=== PATIENT | female | born 1945 | race Caucasian/White ===

== ENCOUNTER 2017-12-03 21:44 | Outpatient (CLI) | payer MEDICARE, BC | END 2017-12-03 21:45 | disposition critical access hospital (66) | LOC: EMS 21:44 | PROVIDERS: ATTEND Surgery | DX: R41.82 Altered mental status, unspecified (principal); R53.83 Other fatigue | CPT/HCPCS: A0425; A0427 ==

== ENCOUNTER 2017-12-03 22:02 | Emergency (ER) | payer MEDICARE, BC ==
[2017-12-03 22:20] LABS: BASOPHILS % (AUTO) 0.5 %; EOSINOPHILS # (AUTO) 0.2 10^3/uL (0.0-0.7); EOSINOPHILS % (AUTO) 2.5 %; HGB - HEMOGLOBIN 12.1 g/dL (12.0-16.0); LYMPHOCYTES # (AUTO) 1.7 10^3/uL (1.5-3.5); LYMPHOCYTES % (AUTO) 25.1 %; MEAN CORPUSCULAR HEMOGLOBIN 33.4 pg (27.0-31.0); MEAN CORPUSCULAR VOLUME 98.2 fL (81.0-99.0); MEAN PLATELET VOLUME 7.6 fL (7.9-10.8); MONOCYTES # (AUTO) 0.4 10^3/uL (0.0-1.0); MONOCYTES % (AUTO) 5.3 %; NEUTROPHILS # (AUTO) 4.4 10^3/uL (1.5-6.6); NEUTROPHILS % (AUTO) 66.6 %; PLT - PLATELET COUNT 184 10^3/uL (130-450); RED BLOOD COUNT 3.61 10^6/uL (4.20-5.40); RED CELL DISTRIBUTION WIDTH 12.6 % (12.0-15.0); WHITE BLOOD COUNT 6.6 x10^3/uL (4.8-10.8)
[2017-12-03 22:37] LABS: ALBUMIN 3.4 g/dL (3.2-5.5); ALBUMIN/GLOBULIN RATIO 1.5 (1.0-2.2); ALKALINE PHOSPHATASE 45 IU/L (42-121); ALT ALANINE AMINOTRANSFERASE 27 IU/L (10-60); AST ASPARTATE AMINOTRANSFERASE 26 IU/L (10-42); BUN - BLOOD UREA NITROGEN 31 mg/dL (6-20); CALCIUM 9.2 mg/dL (8.5-10.3); CARBON DIOXIDE - CO2 27 mmol/L (21-32); CHLORIDE 105 mmol/L (101-111); CREATININE 1.3 mg/dL (0.4-1.0); GFR - MDRD 40 (>89); GLUCOSE 80 mg/dL (70-100); LIPASE 30 U/L (22-51); SALICYLATE < 6.0 mg/dL; SODIUM 139 mmol/L (135-145); TOTAL PROTEIN 5.6 g/dL (6.7-8.2)
[2017-12-03 22:40] LABS: ACETAMINOPHEN < 10 ug/mL (10-30)
[2017-12-03 22:56] LABS: BILIRUBIN,URINE NEGATIVE (NEGATIVE); GLUCOSE, URINE (UA) NEGATIVE (NEGATIVE); KETONES,URINE (UA) NEGATIVE (NEGATIVE); LEUKOCYTE ESTERASE, URINE NEGATIVE (NEGATIVE); NITRITE,URINE NEGATIVE (NEGATIVE); OCCULT BLOOD,URINE NEGATIVE (NEGATIVE); PH,URINE 5.5 PH (5.0-7.5); PROTEIN,URINE NEGATIVE (NEGATIVE); UROBILINOGEN,URINE 0.2 (NORMAL) E.U./dL (NORMAL)
[2017-12-03 22:58] LABS: CLARITY,URINE CLEAR (CLEAR)
--- NOTE | 2017-12-03 23:38 | ED Physician Documentation ---
PD HPI MHE - Stated complaint Stated Complaint: OVERDOSE - Chief complaint Chief Complaint: General - History obtained from History obtained from: Patient, EMS, Police - History of Present Illness Primary symptom: Suicide attempt Timing - onset: Today Contributing factors: Family, Sig other Similar symptoms before: Has not had sx before Recently seen: Not recently seen - Additional information Additional information: Patient is a 72 year old female brought in by ems for suicide attempt. According to ems patient is going through a divorce and tonight drank and took an unknown amount of trazadone, alcohol and benzodiazapam. Upon initial evaluation in the emergency department patient is sedated but arousable. Review of Systems Unable to obtain: [facility] PD PAST MEDICAL HISTORY - Past Medical History Past Medical History: Yes Psych: Bipolar disorder Other Past Medical History: alcholism, cochlear implant - Past Surgical History Past Surgical History: Yes General: Cholecystectomy /[employer]: Hysterectomy - Present Medications Home Medications: Ambulatory Orders Medication Instructions Recorded Confirmed Cholecalciferol (Vitamin D3) 1 tab PO DAILY 12/03/17 12/03/17 [Vitamin D3] Estradiol [Estrace] 1 gm 12/03/17 Glucosam/Chondr-MSM#6/Manganes 1 tab PO DAILY 12/03/17 12/03/17 [Glucosamine-Chondroitin Sftgl] Hydroxyzine Pamoate [Vistaril] 25 mg PO DAILY 12/03/17 12/03/17 Ibandronate Sodium 1 tab PO 12/03/17 Lactobacillus Acidophilus 300 mg PO DAILY 12/03/17 12/03/17 [Acidophilus] Levothyroxine Sodium [Levoxyl] 1 tab PO DAILY 12/03/17 12/03/17 Mirabegron [Myrbetriq] 1 tab PO DAILY 12/03/17 12/03/17 Multivitamin [Multiple Vitamins] 1 tab PO DAILY 12/03/17 12/03/17 [place]-3/Dha/Epa/Fish Oil [Fish Oil 1 tab PO DAILY 12/03/17 12/03/17 1,000 mg Softgel] Valacyclovir HCl [Valacyclovir] 1 tab PO DAILY 12/03/17 12/03/17 buPROPion [Wellbutrin Xl] 2 tab PO DAILY 12/03/17 12/03/17 lamoTRIgine [Lamictal] 1 tab PO DAILY 12/03/17 12/03/17 traZODone [Desyrel] 2 tab PO DAILY 12/03/17 12/03/17 - Social History Does the pt smoke?: No Smoking Status: Never smoker PD ED PE NORMAL - Vitals Vital signs reviewed: Yes - HEENT HEENT: Atraumatic - Cardiac Cardiac: RRR - Respiratory Respiratory: No respiratory distress - Abdomen Abdomen: Soft, Non tender - Derm Derm: Normal color - Extremities Extremities: No deformity - Neuro Eye Opening: To Voice Motor: Localizes to Pain Verbal: None GCS Score: 9 PD ED PE EXPANDED - General General: Lethargic (sedated but arousable ) Results - Vitals Vitals: Vital Signs - 24 hr 12/03/17 12/04/17 12/04/17 22:11 00:00 01:00 Temperature Heart Rate 70 70 65 Respiratory 16 18 16 Rate Blood Pressure 112/64 118/54 L 129/74 O2 Saturation 96 100 100 12/04/17 12/04/17 12/04/17 03:00 05:00 06:41 Temperature 36.6 C Heart Rate 49 L 50 L 46 L Respiratory 16 16 14 Rate Blood Pressure 114/52 L 123/58 L 114/59 L O2 Saturation 100 100 100 Oxygen O2 Source Room air - EKG (time done) 2213 Rate: Rate (enter#) (72) Rhythm: NSR [place]: Normal Intervals: Normal [place]. No: Prolonged QT QRS: Normal - Labs Labs: Laboratory Tests 12/03/17 12/03/17 12/03/17 22:16 22:16 22:16 WBC 6.6 RBC 3.61 L Hgb 12.1 Hct 35.4 L MCV 98.2 MCH 33.4 H MCHC 34.0 RDW 12.6 Plt Count 184 MPV 7.6 L Neut # (Auto) 4.4 Lymph # (Auto) 1.7 [place] # (Auto) 0.4 Eos # (Auto) 0.2 Baso # (Auto) 0.0 Absolute Nucleated RBC 0.00 Nucleated RBC % 0.0 Sodium 139 Potassium 4.0 Chloride 105 Carbon Dioxide 27 Anion Gap 7.0 BUN 31 H Creatinine 1.3 H Estimated GFR (MDRD) 40 L Glucose 80 Calcium 9.2 Total Bilirubin 1.0 AST 26 ALT 27 Alkaline Phosphatase 45 Troponin I < 0.04 Total Protein 5.6 L Albumin 3.4 Globulin 2.2 Albumin/Globulin Ratio 1.5 Lipase 30 TSH Urine Color Urine Clarity Urine pH Ur Specific [place] Urine Protein Urine Glucose (UA) Urine Ketones Urine Occult Blood Urine Nitrite Urine Bilirubin Urine Urobilinogen Ur Leukocyte Esterase Ur Microscopic Review Urine Culture Comments Salicylates < 6.0 Urine Opiates Screen Ur Oxycodone Screen Urine Methadone Screen Ur Propoxyphene Screen Acetaminophen < 10 L Ur Barbiturates Screen Ur Tricyclics Screen Ur Phencyclidine Scrn Ur Amphetamine Screen U Methamphetamines Scrn U Benzodiazepines Scrn Urine Cocaine Screen U Cannabinoids Screen Ethyl Alcohol < 5.0 12/03/17 12/03/17 12/03/17 22:16 22:35 22:35 WBC RBC Hgb Hct MCV MCH MCHC RDW Plt Count MPV Neut # (Auto) Lymph # (Auto) [place] # (Auto) Eos # (Auto) Baso # (Auto) Absolute Nucleated RBC Nucleated RBC % Sodium Potassium Chloride Carbon Dioxide Anion Gap BUN Creatinine Estimated GFR (MDRD) Glucose Calcium Total Bilirubin AST ALT Alkaline Phosphatase Troponin I Total Protein Albumin Globulin Albumin/Globulin Ratio Lipase TSH 0.99 Urine Color YELLOW Urine Clarity CLEAR Urine pH 5.5 Ur Specific [place] >=1.030 H Urine Protein NEGATIVE Urine Glucose (UA) NEGATIVE Urine Ketones NEGATIVE Urine Occult Blood NEGATIVE Urine Nitrite NEGATIVE Urine Bilirubin NEGATIVE Urine Urobilinogen 0.2 (NORMAL) Ur Leukocyte Esterase NEGATIVE Ur Microscopic Review NOT INDICATED Urine Culture Comments NOT INDICATED Salicylates Urine Opiates Screen NEGATIVE Ur Oxycodone Screen NEGATIVE Urine Methadone Screen NEGATIVE Ur Propoxyphene Screen NEGATIVE Acetaminophen Ur Barbiturates Screen NEGATIVE Ur Tricyclics Screen NEGATIVE Ur Phencyclidine Scrn NEGATIVE Ur Amphetamine Screen NEGATIVE U Methamphetamines Scrn NEGATIVE U Benzodiazepines Scrn POSITIVE H Urine Cocaine Screen NEGATIVE U Cannabinoids Screen NEGATIVE Ethyl Alcohol PD MEDICAL DECISION MAKING - ED course Complexity details: reviewed old records, reviewed results, re-evaluated patient , considered differential, d/w patient ED course: Patient was seen and examined at bedside. patient was under the influence of trazadone but was arousable. patient was maintaining her airway. poison control was contacted and they recommended 6-8 hr observation. In the morning patient was re-evaluated. Patient was calm and cooperative. patient was medically clear and signed over to Dr. Trinidad pending social work evaluation. - Sepsis Event Vital Signs: Vital Signs - 24 hr 12/03/17 12/04/17 12/04/17 22:11 00:00 01:00 Temperature Heart Rate 70 70 65 Respiratory 16 18 16 Rate Blood Pressure 112/64 118/54 L 129/74 O2 Saturation 96 100 100 12/04/17 12/04/17 12/04/17 03:00 05:00 06:41 Temperature 36.6 C Heart Rate 49 L 50 L 46 L Respiratory 16 16 14 Rate Blood Pressure 114/52 L 123/58 L 114/59 L O2 Saturation 100 100 100 Oxygen O2 Source Room air Departure - Departure Clinical Impression: Depression, Suicide attempt by drug ingestion Condition: Stable
[2017-12-04 06:26] LABS: MUDS CUTOFF CONCENTRATIONS CUTOFF CONC BELOW:
[2017-12-04 06:49] LABS: AMPHETAMINE SCREEN,URINE NEGATIVE (NEGATIVE); BENZODIAZEPINES SCREEN, URINE POSITIVE (NEGATIVE); COCAINE SCREEN URINE NEGATIVE (NEGATIVE); METHAMPHETAMINES SCREEN, URINE NEGATIVE (NEGATIVE); OPIATE SCREEN, URINE NEGATIVE (NEGATIVE)
[2017-12-04 06:50] LABS: METHADONE SCREEN, URINE NEGATIVE (NEGATIVE); OXYCODONE SCREEN, URINE NEGATIVE (NEGATIVE); PROPOXYPHENE SCREEN, URINE NEGATIVE (NEGATIVE); TRICYCLIC ANTIDEPRESSANT,URINE NEGATIVE (NEGATIVE)
--- NOTE | 2017-12-04 07:37 | ED Physician Documentation ---
History of Present Illness - Stated complaint Stated Complaint: OVERDOSE - Chief complaint Chief Complaint: General - Additonal information Additional information: assumed care 7 AM 12/04 72 f per night custodian (and confirmed with pt this AM) she is getting and wants to and took an intentional trazadone OD last night she denies other meds OD she is dissapointed she did not and is still suicidal now she states she fell and hut her R shoulder but denies hitting her head and denies [employer] no fever cough NVD seen and medically cleared by prior shift per night custodian Dr Argueta, case was discussed with DCR who was already in the ER seeing another pt but she felt pt should be seen by SW instead so she has boarded overnight pending SW availability Review of Systems Constitutional: denies: Fever Cardiac: denies: Chest pain / pressure Respiratory: denies: Dyspnea GI: denies: Abdominal Pain, Nausea, Vomiting Skin: reports: Other (bruise right shoulder) Musculoskeletal: denies: Neck pain Neurologic: denies: Headache, Head injury Psychiatric: reports: Depressed, Suicidal Endocrine: denies: Easy bruising / bleeding Immunocompromised: denies: Immunocompromised PD PAST MEDICAL HISTORY - Past Medical History Past Medical History: Yes Psych: Bipolar disorder Other Past Medical History: alcholism, cochlear implant - Past Surgical History Past Surgical History: Yes General: Cholecystectomy /[employer]: Hysterectomy - Present Medications Home Medications: Ambulatory Orders Medication Instructions Recorded Confirmed Cholecalciferol (Vitamin D3) 1 tab PO DAILY 12/03/17 12/03/17 [Vitamin D3] Estradiol [Estrace] 1 gm 12/03/17 Glucosam/Chondr-MSM#6/Manganes 1 tab PO DAILY 12/03/17 12/03/17 [Glucosamine-Chondroitin Sftgl] Hydroxyzine Pamoate [Vistaril] 25 mg PO DAILY 12/03/17 12/03/17 Ibandronate Sodium 1 tab PO 12/03/17 Lactobacillus Acidophilus 300 mg PO DAILY 12/03/17 12/03/17 [Acidophilus] Levothyroxine Sodium [Levoxyl] 1 tab PO DAILY 12/03/17 12/03/17 Mirabegron [Myrbetriq] 1 tab PO DAILY 12/03/17 12/03/17 Multivitamin [Multiple Vitamins] 1 tab PO DAILY 12/03/17 12/03/17 [place]-3/Dha/Epa/Fish Oil [Fish Oil 1 tab PO DAILY 12/03/17 12/03/17 1,000 mg Softgel] Valacyclovir HCl [Valacyclovir] 1 tab PO DAILY 12/03/17 12/03/17 buPROPion [Wellbutrin Xl] 2 tab PO DAILY 12/03/17 12/03/17 lamoTRIgine [Lamictal] 1 tab PO DAILY 12/03/17 12/03/17 traZODone [Desyrel] 2 tab PO DAILY 12/03/17 12/03/17 - Allergies Allergies/Adverse Reactions: Allergies Allergy/AdvReac Type Severity Reaction Status Date / Time No Known Drug Allergies Allergy Verified 12/04/17 07:13 - Social History Does the pt smoke?: No Smoking Status: Never smoker PD ED PE NORMAL - Vitals Vital signs reviewed: Yes - General General: Other (disheveled frustrated) - HEENT HEENT: Atraumatic, PERRL - Neck Neck: No bony TTP - Cardiac Cardiac: RRR - Respiratory Respiratory: No respiratory distress, Clear bilaterally - Abdomen Abdomen: Non tender - Derm Derm: Other (small bruise right shoulder but full ROM s pain) - Extremities Extremities: No deformity - Neuro Neuro: Alert and oriented X 3 Eye Opening: Spontaneous Motor: Obeys Commands Verbal: Oriented GCS Score: 15 - Psych Psych: Other (depressed and still actively suicidal) Results - Vitals Vitals: Vital Signs - 24 hr 12/03/17 12/04/17 12/04/17 22:11 00:00 01:00 Temperature Heart Rate 70 70 65 Respiratory 16 18 16 Rate Blood Pressure 112/64 118/54 L 129/74 O2 Saturation 96 100 100 12/04/17 12/04/17 12/04/17 03:00 05:00 06:41 Temperature 36.6 C Heart Rate 49 L 50 L 46 L Respiratory 16 16 14 Rate Blood Pressure 114/52 L 123/58 L 114/59 L O2 Saturation 100 100 100 12/04/17 12/04/17 07:38 12:39 Temperature 36.5 C Heart Rate 58 L 59 L Respiratory 15 13 Rate Blood Pressure 108/56 L 107/65 O2 Saturation 100 99 Oxygen O2 Source Room air - Tele (time rhythm occurred) 0720 Telemetry / rhythm strip: Other (NSR nl QRS and QT) - Labs Labs: Laboratory Tests 12/03/17 12/03/17 12/03/17 22:16 22:16 22:16 WBC 6.6 RBC 3.61 L Hgb 12.1 Hct 35.4 L MCV 98.2 MCH 33.4 H MCHC 34.0 RDW 12.6 Plt Count 184 MPV 7.6 L Neut # (Auto) 4.4 Lymph # (Auto) 1.7 [place] # (Auto) 0.4 Eos # (Auto) 0.2 Baso # (Auto) 0.0 Absolute Nucleated RBC 0.00 Nucleated RBC % 0.0 Sodium 139 Potassium 4.0 Chloride 105 Carbon Dioxide 27 Anion Gap 7.0 BUN 31 H Creatinine 1.3 H Estimated GFR (MDRD) 40 L Glucose 80 Calcium 9.2 Total Bilirubin 1.0 AST 26 ALT 27 Alkaline Phosphatase 45 Troponin I < 0.04 Total Protein 5.6 L Albumin 3.4 Globulin 2.2 Albumin/Globulin Ratio 1.5 Lipase 30 TSH Urine Color Urine Clarity Urine pH Ur Specific [place] Urine Protein Urine Glucose (UA) Urine Ketones Urine Occult Blood Urine Nitrite Urine Bilirubin Urine Urobilinogen Ur Leukocyte Esterase Ur Microscopic Review Urine Culture Comments Salicylates < 6.0 Urine Opiates Screen Ur Oxycodone Screen Urine Methadone Screen Ur Propoxyphene Screen Acetaminophen < 10 L Ur Barbiturates Screen Ur Tricyclics Screen Ur Phencyclidine Scrn Ur Amphetamine Screen U Methamphetamines Scrn U Benzodiazepines Scrn Urine Cocaine Screen U Cannabinoids Screen Ethyl Alcohol < 5.0 12/03/17 12/03/17 12/03/17 22:16 22:35 22:35 WBC RBC Hgb Hct MCV MCH MCHC RDW Plt Count MPV Neut # (Auto) Lymph # (Auto) [place] # (Auto) Eos # (Auto) Baso # (Auto) Absolute Nucleated RBC Nucleated RBC % Sodium Potassium Chloride Carbon Dioxide Anion Gap BUN Creatinine Estimated GFR (MDRD) Glucose Calcium Total Bilirubin AST ALT Alkaline Phosphatase Troponin I Total Protein Albumin Globulin Albumin/Globulin Ratio Lipase TSH 0.99 Urine Color YELLOW Urine Clarity CLEAR Urine pH 5.5 Ur Specific [place] >=1.030 H Urine Protein NEGATIVE Urine Glucose (UA) NEGATIVE Urine Ketones NEGATIVE Urine Occult Blood NEGATIVE Urine Nitrite NEGATIVE Urine Bilirubin NEGATIVE Urine Urobilinogen 0.2 (NORMAL) Ur Leukocyte Esterase NEGATIVE Ur Microscopic Review NOT INDICATED Urine Culture Comments NOT INDICATED Salicylates Urine Opiates Screen NEGATIVE Ur Oxycodone Screen NEGATIVE Urine Methadone Screen NEGATIVE Ur Propoxyphene Screen NEGATIVE Acetaminophen Ur Barbiturates Screen NEGATIVE Ur Tricyclics Screen NEGATIVE Ur Phencyclidine Scrn NEGATIVE Ur Amphetamine Screen NEGATIVE U Methamphetamines Scrn NEGATIVE U Benzodiazepines Scrn POSITIVE H Urine Cocaine Screen NEGATIVE U Cannabinoids Screen NEGATIVE Ethyl Alcohol 12/04/17 12/04/17 10:32 10:40 WBC RBC Hgb Hct MCV MCH MCHC RDW Plt Count MPV Neut # (Auto) Lymph # (Auto) [place] # (Auto) Eos # (Auto) Baso # (Auto) Absolute Nucleated RBC Nucleated RBC % Sodium Potassium Chloride Carbon Dioxide Anion Gap BUN Creatinine Estimated GFR (MDRD) Glucose Calcium Total Bilirubin AST ALT Alkaline Phosphatase Troponin I Total Protein Albumin Globulin Albumin/Globulin Ratio Lipase TSH Urine Color Urine Clarity Urine pH Ur Specific [place] Urine Protein Urine Glucose (UA) Urine Ketones Urine Occult Blood Urine Nitrite Urine Bilirubin Urine Urobilinogen Ur Leukocyte Esterase Ur Microscopic Review Urine Culture Comments Salicylates < 6.0 Urine Opiates Screen NEGATIVE Ur Oxycodone Screen NEGATIVE Urine Methadone Screen NEGATIVE Ur Propoxyphene Screen NEGATIVE Acetaminophen < 10 L Ur Barbiturates Screen NEGATIVE Ur Tricyclics Screen NEGATIVE Ur Phencyclidine Scrn NEGATIVE Ur Amphetamine Screen NEGATIVE U Methamphetamines Scrn NEGATIVE U Benzodiazepines Scrn POSITIVE H Urine Cocaine Screen NEGATIVE U Cannabinoids Screen NEGATIVE Ethyl Alcohol PD MEDICAL DECISION MAKING - ED course ED course: assumed care 7 AM 12/04 72 f per night custodian (and confirmed with pt this AM) she is getting and wants to and took an intentional trazadone OD last night she denies other meds OD she is dissapointed she did not and is still suicidal now she states she fell and hut her R shoulder but denies hitting her head and denies [employer] no fever cough NVD seen and medically cleared by prior shift per night custodian Dr Argueta, case was discussed with DCR who was already in the ER seeing another pt but she felt pt should be seen by SW instead so she has boarded overnight pending SW availability seen by SW who agrees pt is not safe for dc home and will try to place pt per SW paperwork faxed to [facility] and that facility requests rpt tox screen prior to consideration of accepting pt - so that was ordered and unchanged and pt was accepted - COBRAs completed - Sepsis Event Vital Signs: Vital Signs - 24 hr 12/03/17 12/04/17 12/04/17 22:11 00:00 01:00 Temperature Heart Rate 70 70 65 Respiratory 16 18 16 Rate Blood Pressure 112/64 118/54 L 129/74 O2 Saturation 96 100 100 12/04/17 12/04/17 12/04/17 03:00 05:00 06:41 Temperature 36.6 C Heart Rate 49 L 50 L 46 L Respiratory 16 16 14 Rate Blood Pressure 114/52 L 123/58 L 114/59 L O2 Saturation 100 100 100 12/04/17 12/04/17 07:38 12:39 Temperature 36.5 C Heart Rate 58 L 59 L Respiratory 15 13 Rate Blood Pressure 108/56 L 107/65 O2 Saturation 100 99 Oxygen O2 Source Room air Departure - Departure Disposition: 65 Psych Hosp/Unit DC/Xfer Clinical Impression: Depression, Suicide attempt by drug ingestion Condition: Stable Discharge Date/Time: 12/04/17 14:59
[2017-12-04 10:48] LABS: SALICYLATE < 6.0 mg/dL
[2017-12-04 10:51] LABS: ACETAMINOPHEN < 10 ug/mL (10-30)
[2017-12-04 10:52] LABS: MUDS CUTOFF CONCENTRATIONS CUTOFF CONC BELOW:
[2017-12-04 11:06] LABS: AMPHETAMINE SCREEN,URINE NEGATIVE (NEGATIVE); BENZODIAZEPINES SCREEN, URINE POSITIVE (NEGATIVE); COCAINE SCREEN URINE NEGATIVE (NEGATIVE); METHAMPHETAMINES SCREEN, URINE NEGATIVE (NEGATIVE); OPIATE SCREEN, URINE NEGATIVE (NEGATIVE)
[2017-12-04 11:07] LABS: METHADONE SCREEN, URINE NEGATIVE (NEGATIVE); OXYCODONE SCREEN, URINE NEGATIVE (NEGATIVE); PROPOXYPHENE SCREEN, URINE NEGATIVE (NEGATIVE); TRICYCLIC ANTIDEPRESSANT,URINE NEGATIVE (NEGATIVE)
[2017-12-04 12:40] VITALS: BP 107/65
== END 2017-12-04 14:59 ==
LOC: EDUNIT# → ED 22:02
DX: F32.9 Major depressive disorder, single episode, unspecified (principal); T43.212A Poisoning by selective serotonin and norepinephrine reuptake inhibitors, intentional self-harm, initial encounter; I45.81 Long QT syndrome
CPT/HCPCS: 36415; 80053; 80306; 80307; 80320; 80329; 81001; 81003; 83690; 84443; 84484; 85025; 87086; 93005; 99283; 99284

== ENCOUNTER 2018-11-20 17:46 | Outpatient (CLI) | payer MEDICARE, BC | END 2018-11-20 17:47 | disposition short-term general hospital (02) | LOC: EMS 17:46 | PROVIDERS: ATTEND Surgery | DX: R53.1 Weakness (principal); R42 Dizziness and giddiness; R20.2 Paresthesia of skin | CPT/HCPCS: A0425; A0429 ==

== ENCOUNTER 2020-11-05 08:00 | Outpatient (CLI) | payer MEDICARE, BC | END 2020-11-05 23:59 | disposition home or self-care (01) | LOC: LAB.N 08:00 | PROVIDERS: ATTEND Physician Assistant Medical | DX: N39.0 Urinary tract infection, site not specified (principal) | CPT/HCPCS: 87086 ==

== ENCOUNTER 2020-11-15 10:47 | Emergency (ER) | payer MEDICARE, BC ==
[2020-11-15 11:01] VITALS: BP 112/66
--- NOTE | 2020-11-15 12:35 | ED Physician Documentation ---
History of Present Illness - Stated complaint Stated Complaint: FEMALE - Chief complaint Chief Complaint: General - History obtained from History obtained from: Patient - History of Present Illness Timing: Today Pain level max: 0 Pain level now: 0 - Additonal information Additional information: Patient is a 75-year-old female who presents to the emergency department requesting a change in her [place] leg bag. She states her current bag is leaking. No other complaints. Review of Systems Constitutional: denies: Fever GI: denies: Abdominal Pain, Vomiting, Diarrhea Neurologic: denies: Headache PD PAST MEDICAL HISTORY - Past Medical History Past Medical History: Yes : Other (urinary retention) Psych: Bipolar disorder - Past Surgical History Past Surgical History: Yes General: Cholecystectomy /[employer]: Hysterectomy Other past surgical history: cochlear implant - Present Medications Home Medications: Ambulatory Orders Medication Instructions Recorded Confirmed Cholecalciferol (Vitamin D3) 1 tab PO DAILY 12/03/17 12/03/17 [Vitamin D3] Glucosam/Chondr-Msm6/[place] 1 tab PO DAILY 12/03/17 12/03/17 [Glucosamine-Chondroitin Sftgl] Ibandronate Sodium 1 tab PO 12/03/17 Lactobacillus Acidophilus 300 mg PO DAILY 12/03/17 12/03/17 [Acidophilus] Levothyroxine Sodium [Levoxyl] 1 tab PO DAILY 12/03/17 12/03/17 Mirabegron [Myrbetriq] 1 tab PO DAILY 12/03/17 12/03/17 Multivitamin [Multiple Vitamins] 1 tab PO DAILY 12/03/17 12/03/17 [place]-3/Dha/Epa/Fish Oil [Fish Oil 1 tab PO DAILY 12/03/17 12/03/17 1,000 mg Softgel] Valacyclovir HCl [Valacyclovir] 1 tab PO DAILY 12/03/17 12/03/17 buPROPion [Wellbutrin Xl] 2 tab PO DAILY 12/03/17 12/03/17 estradioL [Estrace] 1 gm 12/03/17 hydrOXYzine pamoate [Vistaril] 25 mg PO DAILY 12/03/17 12/03/17 lamoTRIgine [Lamictal] 1 tab PO DAILY 12/03/17 12/03/17 traZODone [Desyrel] 2 tab PO DAILY 12/03/17 12/03/17 - Allergies Allergies/Adverse Reactions: Allergies Allergy/AdvReac Type Severity Reaction Status Date / Time No Known Drug Allergies Allergy Verified 11/15/20 11:01 - Social History Does the pt smoke?: No Smoking Status: Never smoker PD ED PE NORMAL - Vitals Vital signs reviewed: Yes - General General: Alert and oriented X 3, No acute distress - HEENT HEENT: Moist mucous membranes - Abdomen Abdomen: Soft, Non tender, Non distended - Derm Derm: Warm and dry - Extremities Extremities: No edema - Neuro Neuro: Alert and oriented X 3 Results - Vitals Vitals: Vital Signs - 24 hr 11/15/20 10:55 Temperature 36.6 C Heart Rate 76 Respiratory 16 Rate Blood Pressure 112/66 O2 Saturation 98 Oxygen O2 Source Room air PD MEDICAL DECISION MAKING - ED course Complexity details: considered differential, d/w patient ED course: [place] catheter in place. There is no leaking of the catheter itself. The leak is from the bottom of the leg bag. This was changed. Patient will follow up with her urologist for further care. This document was made in part using voice recognition software. While efforts are made to proofread this document, sound alike and grammatical errors may occur. Departure - Departure Disposition: 01 Home, Self Care Clinical Impression: [place] catheter in place Condition: Good Instructions: ED Catheter Care [place] Follow-Up: BOBBI CRAMER MD [Primary Care Provider] - As Needed Comments: Your leg bag was changed today. Please follow-up with your doctor for further care. Return if you worsen
== END 2020-11-15 13:04 | disposition home or self-care (01) ==
LOC: ED 10:47
DX: Z46.6 Encounter for fitting and adjustment of urinary device (principal)
CPT/HCPCS: 99281

== ENCOUNTER 2021-05-03 06:25 | Outpatient (CLI) | payer MEDICARE, BC | END 2021-05-03 06:26 | disposition short-term general hospital (02) | LOC: EMS 06:25 | DX: Z04.3 Encounter for examination and observation following other accident (principal); M25.532 Pain in left wrist; M79.632 Pain in left forearm | CPT/HCPCS: A0425; A0427 ==

== ENCOUNTER 2021-10-05 16:35 | Outpatient (CLI) | payer MEDICARE, OTHER ==
--- NOTE | 2021-10-06 17:46 | XRAY Report ---
PROCEDURE: Lumbar Spine 2 View INDICATIONS: LOW BACK PAIN TECHNIQUE: 2 views of the lumbar spine were acquired. COMPARISON: None. FINDINGS: Bones: 5 [id number] vertebrae are present. There is normal bony alignment. Mild compression fr acture at the T12 level. Multilevel grade 1 retrolisthesis. Grade 1 spondylolisthesis L5-S1. Multilev el disc height loss with endplate sclerosis and spurring, severe at the L2-L3, L3-L4 and L4-L5 levels . Moderate facet joint arthropathy L5-S1. No suspicious bony lesions. Soft tissues: Overlying bowel gas pattern is normal. No suspicious soft tissue calcifications. IMPRESSION: 1. Mild T12 compression fracture of indeterminate age. If acute fracture is suspected, MRI could be p erformed for further assessment. 2. Multilevel spondylosis. Reviewed by: SOBEIDA Boyd on 10/06/2021 5:45 PM PDT Approved by: Simon Galicia MD on 10/06/2021 5:45 PM PDT Station ID: [id number]
== END 2021-10-05 16:36 | disposition home or self-care (01) ==
LOC: DI 16:35
PROVIDERS: ATTEND Student in an Organized Health Care Education/Training Program
DX: M48.54XA Collapsed vertebra, not elsewhere classified, thoracic region, initial encounter for fracture (principal); M47.814 Spondylosis without myelopathy or radiculopathy, thoracic region

== ENCOUNTER 2022-03-31 17:39 | Outpatient (CLI) | payer MEDICARE, OTHER | END 2022-03-31 17:40 | disposition critical access hospital (66) | LOC: EMS 17:39 | DX: R11.2 Nausea with vomiting, unspecified (principal); R19.7 Diarrhea, unspecified; R10.31 Right lower quadrant pain; R10.32 Left lower quadrant pain; R50.9 Fever, unspecified | CPT/HCPCS: A0425; A0427 ==

== ENCOUNTER 2022-03-31 18:02 | Emergency (ER) | payer MEDICARE, OTHER ==
[2022-03-31 18:34] LABS: BASOPHILS % (AUTO) 0.2 %; HCT - HEMATOCRIT 30.1 % (37.0-47.0); HGB - HEMOGLOBIN 10.1 g/dL (12.0-16.0); LYMPHOCYTES # (AUTO) 0.3 10^3/uL (1.5-3.5); LYMPHOCYTES % (AUTO) 3.3 %; MEAN CORPUSCULAR HEMOGLOBIN 32.6 pg (27.0-31.0); MEAN CORPUSCULAR HGB CONC 33.6 g/dL (32.0-36.0); MEAN CORPUSCULAR VOLUME 97.1 fL (81.0-99.0); MEAN PLATELET VOLUME 9.7 fL (7.9-10.8); MONOCYTES # (AUTO) 0.8 10^3/uL (0.0-1.0); MONOCYTES % (AUTO) 7.9 %; NEUTROPHILS # (AUTO) 8.5 10^3/uL (1.5-6.6); NEUTROPHILS % (AUTO) 88.2 %; PLT - PLATELET COUNT 183 10^3/uL (130-450); RED CELL DISTRIBUTION WIDTH 12.2 % (12.0-15.0); WHITE BLOOD COUNT 9.6 x10^3/uL (4.8-10.8)
--- NOTE | 2022-03-31 18:38 | ED Physician Documentation ---
History of Present Illness - Stated complaint Stated Complaint: N/V/D - Chief complaint Chief Complaint: Abd Pain - Additonal information Additional information: 76-year-old female presents emergency department concerned that she could have dysentery. She reports that she traveled in [place] for 1 month and returned home 2 days ago. She states that she has been having watery diarrhea for the last 3 weeks. She was taking antimalarial pills which I believed to be quinine but am unsure. She states she is supposed to take those for 3 more days. She endorses fevers but no abdominal pain or body aches. No cough. No dysuria. She denies that her output is bloody. She states that she is having on average of 3-5 large watery movements a day Review of Systems Constitutional: reports: Fever Cardiac: reports: Reviewed and negative Respiratory: reports: Reviewed and negative GI: reports: Diarrhea. 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 - Present Medications Home Medications: Ambulatory Orders Medication Instructions Recorded Confirmed Cholecalciferol (Vitamin D3) 1 tab PO DAILY 12/03/17 12/03/17 [Vitamin D3] Glucosam/Chondr-Msm6/Manganese 1 tab PO DAILY 12/03/17 12/03/17 [Glucosamine-Chondroitin Sftgl] Ibandronate Sodium 1 tab PO 12/03/17 Lactobacillus Acidophilus 300 mg PO DAILY 12/03/17 12/03/17 [Acidophilus] Levothyroxine Sodium [Levoxyl] 1 tab PO DAILY 12/03/17 12/03/17 Mirabegron [Myrbetriq] 1 tab PO DAILY 12/03/17 12/03/17 Multivitamin [Multiple Vitamins] 1 tab PO DAILY 12/03/17 12/03/17 [place]-3/Dha/Epa/Fish Oil [Fish Oil 1 tab PO DAILY 12/03/17 12/03/17 1,000 mg Softgel] Valacyclovir HCl [Valacyclovir] 1 tab PO DAILY 12/03/17 12/03/17 buPROPion [Wellbutrin Xl] 2 tab PO DAILY 12/03/17 12/03/17 estradioL [Estrace] 1 gm 12/03/17 hydrOXYzine pamoate [Vistaril] 25 mg PO DAILY 12/03/17 12/03/17 lamoTRIgine [Lamictal] 1 tab PO DAILY 12/03/17 12/03/17 traZODone [Desyrel] 2 tab PO DAILY 12/03/17 12/03/17 Amox/Clav 875/125 [Augmentin] 1 each PO Q12H #20 tablet 03/31/22 Azithromycin [Zithromax] 0 mg PO DAILY #6 tablet 03/31/22 - Allergies Allergies/Adverse Reactions: Allergies Allergy/AdvReac Type Severity Reaction Status Date / Time No Known Drug Allergies Allergy Verified 11/15/20 11:01 - Social History Does the pt smoke?: No Smoking Status: Never smoker PD ED PE NORMAL - General General: Alert and oriented X 3, No acute distress, Well developed/nourished - HEENT HEENT: Atraumatic, Moist mucous membranes - Neck Neck: Supple, no meningeal sign, No adenopathy - Cardiac Cardiac: RRR, No murmur - Respiratory Respiratory: No respiratory distress, Clear bilaterally - Abdomen Abdomen: Normal bowel sounds, Soft, Non tender - Back Back: No CVA TTP, No spinal TTP - Derm Derm: Normal color, Warm and dry, No rash - Extremities Extremities: No deformity, No tenderness to palpate - Neuro Neuro: Alert and oriented X 3, 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 Eye Opening: Spontaneous Motor: Obeys Commands Verbal: Oriented GCS Score: 15 Results - Vitals Vitals: Vital Signs - 24 hr 03/31/22 03/31/22 03/31/22 18:15 18:30 19:25 Temperature 39.4 C H 100.9 C H Heart Rate 78 82 69 Respiratory 20 Rate Blood Pressure 104/63 104/63 O2 Saturation 97 98 99 03/31/22 03/31/22 19:32 20:44 Temperature 38.3 C H Heart Rate 90 Respiratory 16 Rate Blood Pressure 98/54 L 100/47 L O2 Saturation 100 Oxygen O2 Source Room air - Labs Labs: Laboratory Tests 03/31/22 03/31/22 03/31/22 18:27 18:27 18:27 WBC 9.6 RBC 3.10 L Hgb 10.1 L Hct 30.1 L MCV 97.1 MCH 32.6 H MCHC 33.6 RDW 12.2 Plt Count 183 MPV 9.7 Neut # (Auto) 8.5 H Lymph # (Auto) 0.3 L [place] # (Auto) 0.8 Eos # (Auto) 0.0 Baso # (Auto) 0.0 Absolute Nucleated RBC 0.00 Nucleated RBC % 0.0 Sodium 129 L Potassium 3.7 Chloride 99 L Carbon Dioxide 23 Anion Gap 7.0 BUN 29 H Creatinine 1.7 H Estimated GFR (MDRD) 29 L Glucose 222 H Lactic Acid 1.5 Calcium 8.5 Total Bilirubin 0.7 AST 104 H ALT 43 Alkaline Phosphatase 47 Total Protein 6.3 L Albumin 3.4 Globulin 2.9 Albumin/Globulin Ratio 1.2 Urine Color Urine Clarity Urine pH Ur Specific [place] Urine Protein Urine Glucose (UA) Urine Ketones Urine Occult Blood Urine Nitrite Urine Bilirubin Urine Urobilinogen Ur Leukocyte Esterase Urine RBC Urine WBC Ur Squamous Epith Cells Urine Bacteria Urine Casts Urine Culture Comments Nasal Adenovirus (PCR) Nasal B. parapertussis DNA (PCR) Nasal Coronavir 229E PCR Nasal Coronavir HKU1 PCR Nasal Coronavir NL63 PCR Nasal Coronavir OC43 PCR Nasal Enterovir/Rhinovir PCR Nasal Influenza B PCR Nasal Influenza A PCR Nasal Parainfluen 1 PCR Nasal Parainfluen 2 PCR Nasal Parainfluen 3 PCR Nasal Parainfluen 4 PCR Nasal RSV (PCR) Nasal B.pertussis DNA PCR Nasal C.pneumoniae (PCR) Yon Human Metapneumo PCR Nasal M.pneumoniae (PCR) Nasal SARS-CoV-2 (PCR) 03/31/22 03/31/22 03/31/22 18:27 19:22 21:18 WBC RBC Hgb Hct MCV MCH MCHC RDW Plt Count MPV Neut # (Auto) Lymph # (Auto) [place] # (Auto) Eos # (Auto) Baso # (Auto) Absolute Nucleated RBC Nucleated RBC % Sodium 131 L Potassium 3.9 Chloride 102 Carbon Dioxide 22 Anion Gap 7.0 BUN 26 H Creatinine 1.5 H Estimated GFR (MDRD) 34 L Glucose 200 H Lactic Acid Calcium 7.6 L Total Bilirubin AST ALT Alkaline Phosphatase Total Protein Albumin Globulin Albumin/Globulin Ratio Urine Color YELLOW Urine Clarity HAZY Urine pH 6.0 Ur Specific [place] 1.020 Urine Protein 30 H Urine Glucose (UA) NEGATIVE Urine Ketones TRACE Urine Occult Blood LARGE H Urine Nitrite NEGATIVE Urine Bilirubin NEGATIVE Urine Urobilinogen 0.2 (NORMAL) Ur Leukocyte Esterase NEGATIVE Urine RBC 6-10 H Urine WBC 0-3 Ur Squamous Epith Cells MOD Squamous H Urine Bacteria Few Urine Casts 0-2 Granular Casts Urine Culture Comments NOT INDICATED Nasal Adenovirus (PCR) NOT DETECTED Nasal B. parapertussis DNA (PCR) NOT DETECTED Nasal Coronavir 229E PCR NOT DETECTED Nasal Coronavir HKU1 PCR NOT DETECTED Nasal Coronavir NL63 PCR NOT DETECTED Nasal Coronavir OC43 PCR NOT DETECTED Nasal Enterovir/Rhinovir PCR NOT DETECTED Nasal Influenza B PCR NOT DETECTED Nasal Influenza A PCR NOT DETECTED Nasal Parainfluen 1 PCR NOT DETECTED Nasal Parainfluen 2 PCR NOT DETECTED Nasal Parainfluen 3 PCR NOT DETECTED Nasal Parainfluen 4 PCR NOT DETECTED Nasal RSV (PCR) NOT DETECTED Nasal B.pertussis DNA PCR NOT DETECTED Nasal C.pneumoniae (PCR) NOT DETECTED Yon Human Metapneumo PCR NOT DETECTED Nasal M.pneumoniae (PCR) NOT DETECTED Nasal SARS-CoV-2 (PCR) NOT DETECTED - Rads (name of study) CT abd Radiology: Final report received (Focal dense pneumonia right lower lobe. Large fecal lobe. Solid fecal contents. Bilateral kidney stones. No hydronephrosis) PD Medical Decision Making - ED course Complexity details: reviewed results, re-evaluated patient, considered differential, d/w patient ED course: 76-year-old female INITIALLY presents emergency department for evaluation of 3 weeks diarrhea that began while she was in [place] for 1 month. She was taking Malarone as an antimalarial agent. However about 2 hours after she was initially in the emergency department, I reevaluated her and she told me that she was not having diarrhea in fact she been constipated for 3 days. She had very little to eat or drink. She was conf used about when she had the diarrhea and states she only had 3 days of it in [place] She presents here with a mild fever of 101 Celsius. Serum labs show no significant leukocytosis. Her electrolytes do show some kidney injury with an elevated BUN and creatinine. I suspect that this is secondary to dehydration. She was given 2 liter of fluids here in the emergency department. Blood cultures are pending. A CT of her abdomen done without contrast given the kidney injury does show solid stool in the colon nothing to suggest a bowel obstruction or bowel wall thickening/colitis. However she does have a dense right lower lobe pneumonia. She denies any cough. Patient was able to produce 1 small hard nugget of stool in the emergency department. We would not be able to test for C. difficile on this. I do have ova and parasite pending. I have ordered outpatient miscellaneous testing for blood smear to check for malaria as well as PCR testing for dengue fever, Though with the lack of watery stools this is unlikely. Unfortunately these results will not be available overnight. At this time the patient has shown improved renal function after receiving fluid in the emergency department. However about 2144 she was noted to have soft blood pressures in the 90's/40's. She is not hypoxic and would not meet criteria for admission for treatment of the pneumonia. Prescription for azithromycin and Augmentin has been sent to the [facility] in [place]. This she will be given saline at 150 an hour overnight. We will recheck her CBC and BMP in the morning. If improved she is likely stable for discharge home. Blood cultures are pending though I suspect the source of the fever is from the dense pneumonia seen in the right lower lobe of the lung on CT of the abdomen. Patient will be signed out to my nighttime colleague to follow-up on any overnight events and hopeful disposition in am home. Departure - Departure Clinical Impression: Dehydration Pneumonia Qualifiers: Pneumonia type: due to unspecified organism Laterality: right Lung location: lower lobe of lung Qualified Code(s): J18.9 - Pneumonia, unspecified organism Condition: Stable Record reviewed to determine appropriate education?: Yes Instructions: Pneumonia Dc, ED Dehydration Prevent Ch Follow-Up: Óscar Belcher MD [Primary Care Provider] - Prescriptions: Amox/Clav 875/125 [Augmentin] 1 each PO Q12H #20 tablet Azithromycin [Zithromax] 0 mg PO DAILY #6 tablet Comments: Erlene you are seen today in the emergency department because you have been feeling weak and fatigued. You recently returned from [place] and stated that you have had constipation for a few days. The CT of your abdomen shows a right lower lobe pneumonia. Your oxygen levels here are normal and you do not have a cough. I suspect this is a walking pneumonia associated with recent travel. Your initial doses of antibiotics were given tonight in the emergency department and a prescription for them has been sent to [facility] in [place]. It is important that this get filled tomorrow and you begin taking as directed. You were dehydrated here in the emergency department and you had some altered kidney function. We did give you 2 L of IV fluid and on reevaluation your kidney function has started to improve. It is very important that you stay well-hydrated so that you are making clear yellow urine. Its important that you follow closely with your primary care doctor this week to ensure that your symptoms are getting better. Because of your recent travel to [place] we do have malaria and dengue fever testing pending but we will not have these results for a few days. If you find that your symptoms or not improving its important that you return to the ER for a second evaluation. Return sooner for worsening fevers cough, chest pain or shortness of air. Your primary doctor should obtain a repeat chest x-ray in 4 to 6 weeks to ensure that the pneumonia has fully resolved
[2022-03-31] MEDS ORDERED: iohexoL-300 100 ML VIAL ONE (18:41)
[2022-03-31 18:49] LABS: ALBUMIN 3.4 g/dL (3.2-5.5); ALBUMIN/GLOBULIN RATIO 1.2 (1.0-2.2); BILIRUBIN,TOTAL 0.7 mg/dL (0.2-1.0); CALCIUM 8.5 mg/dL (8.5-10.3); CREATININE 1.7 mg/dL (0.4-1.0); POTASSIUM 3.7 mmol/L (3.5-5.0); TOTAL PROTEIN 6.3 g/dL (6.7-8.2)
[2022-03-31] MEDS ORDERED: SODIUM CHLORIDE 0.9% 1,000 ML IV STA ×2 (18:57)
--- NOTE | 2022-03-31 18:57 | XRAY Report ---
PROCEDURE: Chest 1 View X-Ray INDICATIONS: chest pain TECHNIQUE: One view of the chest was acquired. COMPARISON: None. FINDINGS: Surgical changes and devices: None. Lungs and pleura: No pleural effusions or pneumothorax. Subtle pneumonia, right lung base. Mediastinum: Mediastinal contours appear normal. Heart size is normal. Bones and chest wall: No suspicious bony lesions. Overlying soft tissues appear unremarkable. IMPRESSION: Subtle pneumonia, right lung base. Progress films are recommended until clear. Reviewed by: Davidson Bender MD on 03/31/2022 6:55 PM PST Approved by: Davidson Bender MD on 03/31/2022 6:55 PM PST Station ID: [id number]
--- NOTE | 2022-03-31 19:26 | CT Report ---
PROCEDURE: ABDOMEN/PELVIS WO INDICATIONS: TRAVEL TO SIMONE, 3 WK SO DIARRHEA TECHNIQUE: Noncontrast 5 mm thick sections acquired from the diaphragms to the symphysis. 5 mm coronal and sagi ttal reformats were then performed. For radiation dose reduction, the following was used: automated exposure control, adjustment of mA and/or kV according to patient size. COMPARISON: None. FINDINGS: Image quality: Excellent. ABDOMEN: Lung bases: Focal dense pneumonia, basilar portion of right lower lobe. Heart size is normal. Mild p ericardial effusion. Solid organs: Liver and spleen are normal in size. Gallbladder is surgically absent. Pancreas is n ormal in contours. No adrenal nodules. Multiple bilateral renal calcifications. No hydronephrosis. Peritoneum and bowel: Unenhanced bowel loops demonstrate normal wall thickness and caliber. Large fe brennan load. Solid stool contents in the colon. No free fluid or air. Nodes and vessels: No retroperitoneal or mesenteric adenopathy by size criteria. Aorta and inferior vena cava are normal in caliber. Miscellaneous: No ventral hernias. PELVIS: Genitourinary: Bladder wall thickness is normal. Miscellaneous: No inguinal hernias or adenopathy. Bones: No suspicious bony lesions. Remote percutaneous cement fixation of a T12 compression fracture . No acute compression fractures. Lumbar degenerative change. No lytic or blastic bony lesions. IMPRESSION: 1. Focal dense pneumonia, right lower lobe. 2. Large fecal load. Solid fecal contents. 3. Bilateral nephrolithiasis. No hydronephrosis. Progress films are recommended until clear. Reviewed by: Davidson Bender MD on 03/31/2022 7:24 PM PST Approved by: Davidson Bender MD on 03/31/2022 7:24 PM PST Station ID: [id number]
[2022-03-31 19:32] LABS: B. PARAPERTUSSIS- RESP PCR PAN NOT DETECTED; B. PERTUSSIS- RESP PCR PANEL NOT DETECTED; C. PNEUMONIAE- RESP PCR PANEL NOT DETECTED; CORONAVIRUS 229E-RESP PCR NOT DETECTED; CORONAVIRUS HKU1-RESP PCR NOT DETECTED; CORONAVIRUS NL63-RESP PCR NOT DETECTED; CORONAVIRUS OC43-RESP PCR NOT DETECTED; HUMAN METAPNEUMOVIRUS NOT DETECTED; INFLUENZA A- RESP PCR PANEL NOT DETECTED; INFLUENZA B - RESP PCR PANEL NOT DETECTED; M. PNEUMONIAE- RESP PCR PANEL NOT DETECTED; PARAINFLUENZA VIRUS 1 NOT DETECTED; PARAINFLUENZA VIRUS 2 NOT DETECTED; PARAINFLUENZA VIRUS 3 NOT DETECTED; PARAINFLUENZA VIRUS 4 NOT DETECTED; RHINOVIRUS/ENTEROVIRUS NOT DETECTED; RSV- RESP PCR PANEL NOT DETECTED; SARS-CoV-2 -RESP PCR PANEL NOT DETECTED
[2022-03-31 19:35] LABS: BILIRUBIN,URINE NEGATIVE (NEGATIVE); GLUCOSE, URINE (UA) NEGATIVE (NEGATIVE); KETONES,URINE (UA) TRACE mg/dL (NEGATIVE); LEUKOCYTE ESTERASE, URINE NEGATIVE (NEGATIVE); NITRITE,URINE NEGATIVE (NEGATIVE); OCCULT BLOOD,URINE LARGE (NEGATIVE); PROTEIN,URINE 30 mg/dL (NEGATIVE); UROBILINOGEN,URINE 0.2 (NORMAL) E.U./dL (NORMAL)
[2022-03-31 19:38] LABS: CLARITY,URINE HAZY (CLEAR)
[2022-03-31 19:50] LABS: BACTERIA,URINE Few /HPF (None Seen); CASTS, URINE 0-2 Granular Casts /LPF; SQUAMOUS EPITHELIAL CELL,UR MOD Squamous (<= Few); WBC,URINE 0-3 /HPF (0-5)
[2022-03-31] MEDS ORDERED: AZITHROMYCIN 250 MG TABLET PO STA (20:54)
[2022-03-31] MEDS ORDERED: AMOX/CLAV 875 MG/125 MG TABLET PO STA (20:55)
[2022-03-31 21:40] LABS: CALCIUM 7.6 mg/dL (8.5-10.3); CREATININE 1.5 mg/dL (0.4-1.0); POTASSIUM 3.9 mmol/L (3.5-5.0)
[2022-03-31] MEDS ORDERED: SODIUM CHLORIDE 0.9% 500 ML IV STA (22:06)
[2022-04-01] MEDS ORDERED: SODIUM CHLORIDE 0.9% 1,000 ML IV STA (03:46)
[2022-04-01 06:08] LABS: BASOPHILS % (AUTO) 0.2 %; EOSINOPHILS % (AUTO) 0.1 %; HCT - HEMATOCRIT 29.8 % (37.0-47.0); HGB - HEMOGLOBIN 9.8 g/dL (12.0-16.0); LYMPHOCYTES # (AUTO) 0.6 10^3/uL (1.5-3.5); MEAN CORPUSCULAR HEMOGLOBIN 32.5 pg (27.0-31.0); MEAN CORPUSCULAR HGB CONC 32.9 g/dL (32.0-36.0); MEAN CORPUSCULAR VOLUME 98.7 fL (81.0-99.0); MEAN PLATELET VOLUME 9.6 fL (7.9-10.8); MONOCYTES # (AUTO) 0.8 10^3/uL (0.0-1.0); NEUTROPHILS # (AUTO) 7.3 10^3/uL (1.5-6.6); NEUTROPHILS % (AUTO) 83.1 %; PLT - PLATELET COUNT 174 10^3/uL (130-450); RED BLOOD COUNT 3.02 10^6/uL (4.20-5.40); RED CELL DISTRIBUTION WIDTH 12.7 % (12.0-15.0); WHITE BLOOD COUNT 8.8 x10^3/uL (4.8-10.8)
[2022-04-01 06:24] LABS: ALBUMIN 2.9 g/dL (3.2-5.5); ALBUMIN/GLOBULIN RATIO 1.1 (1.0-2.2); BILIRUBIN,TOTAL 0.6 mg/dL (0.2-1.0); CALCIUM 7.8 mg/dL (8.5-10.3); CREATININE 1.3 mg/dL (0.4-1.0); POTASSIUM 3.9 mmol/L (3.5-5.0); TOTAL PROTEIN 5.6 g/dL (6.7-8.2)
[2022-04-01 10:40] VITALS: BP 115/53
--- NOTE | 2022-04-01 10:42 | ED Physician Documentation ---
ED Addendum - Addendum Addendum: 04/01/22 10:40 The patient presented with fever and abdominal pains with reports of nausea with diarrhea. CT scan however showed a fair amount of stool in place. She was still having general weakness and nausea last evening and overnight it in the ER to evaluate repeat blood tests and clinical status. Reported as she has been taking oral fluids overnight. She is feeling improved though still a general weakness. No nausea or vomiting at this time. No diarrhea at this time. Discharge instructions had been arranged and prescription sent by the provider yesterday. At this point the patient seems appropriate for discharge as there is not really criteria for admission per se. Disposition: The patient discharged home in stable condition Diagnoses: 1. Dehydration 2. Abdominal cramping 3. Fever
[2022-04-07 13:09] LABS: OVA + PARASITE EXAM Final report (.)
== END 2022-04-01 11:31 | disposition home or self-care (01) ==
LOC: EDUNIT# → ED 18:02
DX: J18.9 Pneumonia, unspecified organism (principal); E86.0 Dehydration; R41.0 Disorientation, unspecified; R53.1 Weakness
CPT/HCPCS: 36415; 71045; 74176; 80048; 80053; 81001; 81599; 83605; 83690; 85025; 87040; 87045; 87046; 87177; 87427; 87633; 96360; 96361; 99284; A9270; 87086

== ENCOUNTER 2022-04-06 14:57 | Outpatient (CLI) | payer MEDICARE, OTHER | END 2022-04-06 14:58 | disposition short-term general hospital (02) | LOC: EMS 14:57 | DX: R06.02 Shortness of breath (principal); R41.9 Unspecified symptoms and signs involving cognitive functions and awareness; R44.8 Other symptoms and signs involving general sensations and perceptions | CPT/HCPCS: A0425; A0429; A0888 ==

== ENCOUNTER 2022-04-11 11:15 | Outpatient (CLI) | payer MEDICARE, OTHER ==
[2022-04-11 17:34] LABS: ABSOLUTE RETICS # AUTO 0.088 10^6/uL (0.020-0.110); BASOPHILS % (AUTO) 0.5 %; EOSINOPHILS # (AUTO) 0.1 10^3/uL (0.0-0.7); EOSINOPHILS % (AUTO) 2.3 %; HCT - HEMATOCRIT 36.5 % (37.0-47.0); HGB - HEMOGLOBIN 11.6 g/dL (12.0-16.0); LYMPHOCYTES # (AUTO) 1.1 10^3/uL (1.5-3.5); LYMPHOCYTES % (AUTO) 18.7 %; MEAN CORPUSCULAR HEMOGLOBIN 32.6 pg (27.0-31.0); MEAN CORPUSCULAR HGB CONC 31.8 g/dL (32.0-36.0); MEAN CORPUSCULAR VOLUME 102.5 fL (81.0-99.0); MEAN PLATELET VOLUME 9.5 fL (7.9-10.8); MONOCYTES # (AUTO) 0.4 10^3/uL (0.0-1.0); NEUTROPHILS # (AUTO) 4.3 10^3/uL (1.5-6.6); NEUTROPHILS % (AUTO) 69.9 %; PLT - PLATELET COUNT 348 10^3/uL (130-450); RED BLOOD COUNT 3.56 10^6/uL (4.20-5.40); RED CELL DISTRIBUTION WIDTH 13.2 % (12.0-15.0); RETICULOCYTE COUNT % (AUTO) 2.47 % (0.5-2.3); WHITE BLOOD COUNT 6.1 x10^3/uL (4.8-10.8)
[2022-04-11 18:08] LABS: FECAL OCCULT BLOOD (FIT) NEGATIVE (NEGATIVE)
[2022-04-11 18:20] LABS: THYROID STIMULATING HORMONE 1.84 uIU/mL (0.34-5.60)
[2022-04-11 18:21] LABS: ALBUMIN 3.7 g/dL (3.2-5.5); ALBUMIN/GLOBULIN RATIO 1.2 (1.0-2.2); BILIRUBIN,TOTAL 0.6 mg/dL (0.2-1.0); CREATININE 1.5 mg/dL (0.4-1.0); POTASSIUM 4.3 mmol/L (3.5-5.0); TOTAL PROTEIN 6.9 g/dL (6.7-8.2)
[2022-04-11 18:26] LABS: FERRITIN 133.5 ng/mL (11.0-306.8)
== END 2022-04-11 11:16 | disposition home or self-care (01) ==
LOC: LAB.N 11:15
PROVIDERS: ATTEND Internal Medicine
DX: R19.7 Diarrhea, unspecified (principal); D64.9 Anemia, unspecified; E03.9 Hypothyroidism, unspecified
CPT/HCPCS: 36415; 80053; 82274; 82607; 82728; 83540; 84443; 84466; 85025; 85045; 87045; 87046; 87329; 87427; 87493

== ENCOUNTER 2023-04-30 16:36 | Emergency (ER) | payer MEDICARE, OTHER ==
--- NOTE | 2023-04-30 16:47 | ED Physician Documentation ---
PD HPI HEAD INJURY - Stated complaint Stated Complaint: FACE LAC - Chief complaint Chief Complaint: Laceration - History obtained from History obtained from: Patient - History of Present Illness Mechanism of head injury: Fell (slipped and fell, striking chin, with lac and bruising. No dental injury. 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 - Present Medications Home Medications: Ambulatory Orders Medication Instructions Recorded Confirmed Cholecalciferol (Vitamin D3) 1 tab PO DAILY 12/03/17 12/03/17 [Vitamin D3] Glucosam/Chondr-Msm6/Manganese 1 tab PO DAILY 12/03/17 12/03/17 [Glucosamine-Chondroitin Sftgl] Ibandronate Sodium 1 tab PO 12/03/17 Lactobacillus Acidophilus 300 mg PO DAILY 12/03/17 12/03/17 [Acidophilus] Levothyroxine Sodium [Levoxyl] 1 tab PO DAILY 12/03/17 12/03/17 Mirabegron [Myrbetriq] 1 tab PO DAILY 12/03/17 12/03/17 Multivitamin [Multiple Vitamins] 1 tab PO DAILY 12/03/17 12/03/17 [place]-3/Dha/Epa/Fish Oil [Fish Oil 1 tab PO DAILY 12/03/17 12/03/17 1,000 mg Softgel] Valacyclovir HCl [Valacyclovir] 1 tab PO DAILY 12/03/17 12/03/17 buPROPion [Wellbutrin Xl] 2 tab PO DAILY 12/03/17 12/03/17 estradioL [Estrace] 1 gm 12/03/17 hydrOXYzine pamoate [Vistaril] 25 mg PO DAILY 12/03/17 12/03/17 lamoTRIgine [Lamictal] 1 tab PO DAILY 12/03/17 12/03/17 traZODone [Desyrel] 2 tab PO DAILY 12/03/17 12/03/17 Amox/Clav 875/125 [Augmentin] 1 each PO Q12H #20 tablet 03/31/22 Azithromycin [Zithromax] 0 mg PO DAILY #6 tablet 03/31/22 - Allergies Allergies/Adverse Reactions: Allergies Allergy/AdvReac Type Severity Reaction Status Date / Time No Known Drug Allergies Allergy Verified 04/30/23 16:40 - Social History Does the pt smoke?: No Smoking Status: Never smoker Does the pt drink ETOH?: No Does the pt have substance abuse?: No - Immunizations Immunizations are current?: Yes PD ED PE NORMAL - Vitals Vital signs reviewed: Yes - General General: Alert and oriented X 3, No acute distress, Well developed/nourished - HEENT HEENT: Dentition benign, Other (chin with 1.6 cm laceration with irreg edge, mild bleeding, and underlying hematoma/bruising of skin. ) - Neck Neck: Supple, no meningeal sign, No bony TTP - Neuro Neuro: Alert and oriented X 3, No motor deficit, No sensory deficit, Normal speech Results - Vitals Vitals: Vital Signs - 24 hr 04/30/23 04/30/23 16:41 17:20 Temperature 36.8 C 36.5 C Heart Rate 60 60 Respiratory 16 16 Rate Blood Pressure 132/63 H 128/60 O2 Saturation 100 100 Oxygen O2 Source Room air Procedures - Laceration (location) chin Length in cm: 1.6 Wound type: Irregular, Into subcut fat, Clean Neurovascular status: Sensory intact, Motor intact Anesthesia: Lidocaine 1% with epi Wound preparation: Wound explored, To the base, Other (cleansed with tap water.) Skin layer closure: Nylon, Running, Size #-0 - enter number (5), Sutures - enter # (6) PD Medical Decision Making - ED course Complexity details: considered differential (slip, fell, struck and lcaerated chin. No dental injury. No concussive symptoms. Not on anticoag. Considered but did not feel indicated for neuroimaging. ), d/w patient Departure - Departure Disposition: 01 Home, Self Care Clinical Impression: Fall, accidental Qualifiers: Encounter type: initial encounter Qualified Code(s): W19.XXXA - Unspecified fall, initial encounter Chin laceration Qualifiers: Encounter type: initial encounter Qualified Code(s): S01.81XA - Laceration without foreign body of other part of head, initial encounter Chin contusion Qualifiers: Encounter type: initial encounter Qualified Code(s): S00.83XA - Contusion of other part of head, initial encounter Condition: Stable Record reviewed to determine appropriate education?: Yes Instructions: ED Laceration Facial Sutr Tape Comments: It is okay to wash and shower. Clean off the wound twice a day with soap and water, or peroxide and water. Apply some antibiotic ointment to it to keep it moist. Also to watch for signs of infection such as purulence, redness or increasing pain. Return to your primary care or the ER at the specified time for suture removal. Suture removal 8 to 10 days. Due to the swelling and bruising in the area, the skin will heal a little bit slower so I would be inclined to have the sutures stay in a little bit longer and therefore the 8 to 10 days. Tylenol if needed for pains. With gravity, the bruising and swelling of the chin will likely bleach down onto the front of the neck over the next several days or so. This would be expected in not to be concerned. I will likely come out as purple-green and yellow. Forms: PCP List Discharge Date/Time: 04/30/23 17:20
[2023-04-30 16:48] VITALS: O2SAT 100
[2023-04-30] MEDS ORDERED: BACITRACIN ZINC OINT 1 PACKET TOP STA (17:09)
[2023-04-30 17:23] VITALS: BP 128/60
== END 2023-04-30 17:20 | disposition home or self-care (01) ==
LOC: ED 16:36
DX: S01.81XA Laceration without foreign body of other part of head, initial encounter (principal); W01.0XXA Fall on same level from slipping, tripping and stumbling without subsequent striking against object, initial encounter
CPT/HCPCS: 12011; 99282; 99283; A9270

== ENCOUNTER 2023-05-09 17:30 | Emergency (ER) | payer MEDICARE, OTHER ==
[2023-05-09 17:44] VITALS: BP 152/73; O2SAT 97
--- NOTE | 2023-05-09 18:50 | ED Physician Documentation ---
PD HPI SKIN - Stated complaint Stated Complaint: STITCHES REMOVAL - Chief complaint Chief Complaint: Wound - History obtained from History obtained from: Patient - Additional information Additional information: 77 yo Female here for suture removal. Patient has sutures placed 9 days ago to her chin after sustaining a ground-level fall without loss of consciousness. Wound edges appear to be well-approximated no signs or symptoms of infection. 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 - Present Medications Home Medications: Ambulatory Orders Medication Instructions Recorded Confirmed Cholecalciferol (Vitamin D3) 1 tab PO DAILY 12/03/17 12/03/17 [Vitamin D3] Glucosam/Chondr-Msm6/Manganese 1 tab PO DAILY 12/03/17 12/03/17 [Glucosamine-Chondroitin Sftgl] Ibandronate Sodium 1 tab PO 12/03/17 Lactobacillus Acidophilus 300 mg PO DAILY 12/03/17 12/03/17 [Acidophilus] Levothyroxine Sodium [Levoxyl] 1 tab PO DAILY 12/03/17 12/03/17 Mirabegron [Myrbetriq] 1 tab PO DAILY 12/03/17 12/03/17 Multivitamin [Multiple Vitamins] 1 tab PO DAILY 12/03/17 12/03/17 [place]-3/Dha/Epa/Fish Oil [Fish Oil 1 tab PO DAILY 12/03/17 12/03/17 1,000 mg Softgel] Valacyclovir HCl [Valacyclovir] 1 tab PO DAILY 12/03/17 12/03/17 buPROPion [Wellbutrin Xl] 2 tab PO DAILY 12/03/17 12/03/17 estradioL [Estrace] 1 gm 12/03/17 hydrOXYzine pamoate [Vistaril] 25 mg PO DAILY 12/03/17 12/03/17 lamoTRIgine [Lamictal] 1 tab PO DAILY 12/03/17 12/03/17 traZODone [Desyrel] 2 tab PO DAILY 12/03/17 12/03/17 Amox/Clav 875/125 [Augmentin] 1 each PO Q12H #20 tablet 03/31/22 Azithromycin [Zithromax] 0 mg PO DAILY #6 tablet 03/31/22 - Allergies Allergies/Adverse Reactions: Allergies Allergy/AdvReac Type Severity Reaction Status Date / Time No Known Drug Allergies Allergy Verified 05/09/23 17:38 - Social History Does the pt smoke?: No Smoking Status: Never smoker Does the pt drink ETOH?: No Does the pt have substance abuse?: No - Immunizations Immunizations are current?: Yes PD ED PE NORMAL - Vitals Vital signs reviewed: Yes - General General: Alert and oriented X 3 - HEENT HEENT: Atraumatic, Other (well healing bruising to pts chin) - Neck Neck: Supple, no meningeal sign - Derm Derm: Other (well approximated laceration to chin) Results - Vitals Vitals: Vital Signs - 24 hr 05/09/23 17:34 Temperature 36.5 C Heart Rate 60 Respiratory 18 Rate Blood Pressure 152/73 H O2 Saturation 97 Oxygen O2 Source Room air PD Medical Decision Making - ED course ED course: 77-year-old female presents emergency department for suture removal. RN removed sutures without any complications or difficulty. Wound edges appear to be well-approximated, no signs or symptoms of infection. Patient was taught how to manage the mild hematoma to her chin and given return precautions and told to follow-up with primary care provider as needed. Departure - Departure Disposition: 01 Home, Self Care Clinical Impression: Visit for suture removal Condition: Good Instructions: ED Sutr Removal No Compl Ch Comments: Thank you for trusting us with your care. We have removed your sutures without any difficulty. Keep your scar covered from the sun to prevent from scarring. You can do some gentle massaging with warm water or warm compresses to help your body reabsorb the small amount of blood collection you have in your chin. Please come back to the emergency if you started to notice any signs or symptoms of infection which include redness, swelling, hot to the touch, drainage that is yellow/green. Forms: PCP List Discharge Date/Time: 05/09/23 19:10
== END 2023-05-09 19:10 | disposition home or self-care (01) ==
LOC: ED 17:30
DX: Z48.02 Encounter for removal of sutures (principal); S01.81XD Laceration without foreign body of other part of head, subsequent encounter; W18.30XD Fall on same level, unspecified, subsequent encounter; Z79.899 Other long term (current) drug therapy
CPT/HCPCS: 99281; 99283

== ENCOUNTER 2023-06-09 13:37 | Emergency (ER) | payer MEDICARE, OTHER ==
[2023-06-09 13:52] VITALS: BP 114/59; O2SAT 95
--- NOTE | 2023-06-09 14:12 | ED Physician Documentation ---
History of Present Illness - Stated complaint Stated Complaint: LT LEG KNEE PX - Chief complaint Chief Complaint: Trauma Ext - History obtained from History obtained from: Patient - History of Present Illness Timing: Today Pain level max: 0 Pain level now: 0 - Additonal information Additional information: 77-year-old female presents to the emergency department the blister on the left leg at the site where she had a skin lesion frozen off 2 days ago. No redness. No drainage. Nothing makes it better or worse. No fevers. No chills. No other symptoms. 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 PERSONAL: Hysterectomy - Present Medications Home Medications: Ambulatory Orders Medication Instructions Recorded Confirmed Cholecalciferol (Vitamin D3) 1 tab PO DAILY 12/03/17 12/03/17 [Vitamin D3] Glucosam/Chondr-Msm6/Manganese 1 tab PO DAILY 12/03/17 12/03/17 [Glucosamine-Chondroitin Sftgl] Ibandronate Sodium 1 tab PO 12/03/17 Lactobacillus Acidophilus 300 mg PO DAILY 12/03/17 12/03/17 [Acidophilus] Levothyroxine Sodium [Levoxyl] 1 tab PO DAILY 12/03/17 12/03/17 Mirabegron [Myrbetriq] 1 tab PO DAILY 12/03/17 12/03/17 Multivitamin [Multiple Vitamins] 1 tab PO DAILY 12/03/17 12/03/17 Campo-3/Dha/Epa/Fish Oil [Fish Oil 1 tab PO DAILY 12/03/17 12/03/17 1,000 mg Softgel] Valacyclovir HCl [Valacyclovir] 1 tab PO DAILY 12/03/17 12/03/17 buPROPion [Wellbutrin Xl] 2 tab PO DAILY 12/03/17 12/03/17 estradioL [Estrace] 1 gm 12/03/17 hydrOXYzine pamoate [Vistaril] 25 mg PO DAILY 12/03/17 12/03/17 lamoTRIgine [Lamictal] 1 tab PO DAILY 12/03/17 12/03/17 traZODone [Desyrel] 2 tab PO DAILY 12/03/17 12/03/17 Amox/Clav 875/125 [Augmentin] 1 each PO Q12H #20 tablet 03/31/22 Azithromycin [Zithromax] 0 mg PO DAILY #6 tablet 03/31/22 - Allergies Allergies/Adverse Reactions: Allergies Allergy/AdvReac Type Severity Reaction Status Date / Time No Known Drug Allergies Allergy Verified 06/09/23 13:57 - Social History Does the pt smoke?: No Smoking Status: Never smoker Does the pt drink ETOH?: No Does the pt have substance abuse?: No - Immunizations Immunizations are current?: Yes PD ED PE NORMAL - Vitals Vital signs reviewed: Yes - General General: Alert and oriented X 3, No acute distress - Derm Derm: Warm and dry - Extremities Extremities: Other (L thigh - 1 cm clear fluid-filled blister to the distal left thigh, medial aspect. No surrounding erythema. Neurovascular intact. 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 No signs of infection. No indication for elective rupturing. Counseled regarding signs of infection. This should resolve on its own and may rupture at home. No emergency medical condition at this time. Patient counseled regarding signs and symptoms for which I believe and urgent re- evaluation would be necessary. Patient with good understanding of and agreement to plan and is comfortable going home at this time This document was made in part using voice recognition software. While efforts are made to proofread this document, sound alike and grammatical errors may occur. Departure - Departure Disposition: 01 Home, Self Care Clinical Impression: Blister Condition: Good Instructions: ED Blister Follow-Up: your,doctor in 1 week [Other] Comments: You have a fluid-filled blister on your leg. This should resorb on its own. There is no sign of infection. Please return if you notice redness or swelling at the site. You can apply ice as well. We did apply a bandage to help prevent clothes rubbing on the site and to catch any fluid if the blister bursts. Forms: PCP List Discharge Date/Time: 06/09/23 14:20
== END 2023-06-09 14:20 | disposition home or self-care (01) ==
LOC: ED 13:37
DX: S70.322A Blister (nonthermal), left thigh, initial encounter (principal); X58.XXXA Exposure to other specified factors, initial encounter
CPT/HCPCS: 99281; 99282